=== PATIENT | male | born 2005 | race Caucasian/White ===

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

== ENCOUNTER 2023-03-04 18:23 | Emergency (ER) | payer OTHER, SELFPAY ==
--- NOTE | 2023-03-04 18:26 | ED.SKABFB ---
HPI - Skin/Abscess/Foreign Bdy General Chief complaint: Skin/Abscess/Foreign Body Stated complaint: left ring finger bee sting Time Seen by Provider: 03/04/23 18:26 Source: patient Mode of arrival: ambulatory Limitations: no limitations History of Present Illness HPI narrative: is a 17-year-old male patient presenting to clinic today with complaints of right ring finger swelling after he was stung by a loss 2 days ago. He reports that the fingers very itchy. No fever or chills. Denies shortness of breath, difficulty swallowing, or tongue swelling Related Data Home Medications Medication Instructions Recorded Confirmed albuterol sulfate 90 mcg/actuation 90 mcg inhalation Q4H PRN Headache 11/26/20 03/04/23 aerosol inhaler sumatriptan succinate 50 mg tablet 50 mg PO USEASDIRECTD 11/26/20 03/04/23 buspirone 10 mg tablet 10 mg PO DAILY 10/16/21 03/04/23 quetiapine 50 mg tablet 50 mg PO HS 10/16/21 03/04/23 Allergies Allergy/AdvReac Type Severity Reaction Status Date / Time No Known Allergies Allergy Verified 03/04/23 18:39 Review of Systems Review of Systems: Pertinent positives per HPI. Patient denies any fever, chills, headache, visual changes, dizziness, cough, runny nose, sore throat, shortness of breath, chest pain, palpitations, nausea, vomiting, diarrhea, constipation, abdominal pain, or any urinary issues. PMFSH Past Medical History Medical History Asthma Constipation Depression GERD (gastroesophageal reflux disease) Scoliosis Seasonal allergies Sleeplessness Social anxiety disorder Surgical History Surgical History No history of previous surgery Family History Family History Mother FH: migraines Anxiety Grandparent Diabetes mellitus Other Elevated cholesterol Hypertension Social History Social History (Updated 01/07/22 @ 09:44 by Caron Bennett NP) Tobacco type: e-cigarettes/vaping Alcohol intake: never Substance use: never Living arrangements: with family Occupation/Education: student Gender identity (if verbalized by the patient): Male Comments At the time of my signature, I reviewed and agree with the nursing past medical, surgical, social, and family history. There is no relevant family history pertinent to the patient complaint. Exam Narrative: General: Well-developed, well nourished, in no apparent distress Head: Normocephalic, atraumatic. Cardio: Regular rate and rhythm, s1 and s2 normal, no murmur appreciated. Resp: Clear to auscultation bilaterally, no rhonchi, rales, wheezing or rubs. Integumentary: Hartman, warm, and dry, intact without lesion, right volar ring finger swollen, red, and itchy-wasp sting over the the proximal DIP joint Course Course Emergency Course: Portions of this record may have been created with voice recognition software. Level of Care: Express Care Visit Vital Signs Vital signs: Vital signs reviewed MDM - Skin/Abscess/Foreign Bdy MDM Narrative Medical decision making narrative: At the time of visit patient is resting on the exam table. I suspect patient has a localized allergic reaction localized from a law stating to the right finger. Will place on oral prednisone and triamcinolone cream. Supportive measures were discussed with the patient he voiced understanding discharge instructions and agrees to treatment plan. Differential Diagnosis Differential diagnosis: Likely abscess of skin or subcutaneous tissue, allergic reaction to drug, cellulitis, eczema, insect bites and contact dermatitis Discharge Plan Discharge Clinical Impression: Allergic reaction to insect sting Qualifiers: Encounter type: initial encounter Injury intent: accidental or unintentional Qualified Code(s): T63.481A - Toxic effect of venom of other arthropod, accide
[2023-03-04 18:33] VITALS: BP 133/70; PULSE 66; RESP 18; TEMP 36.9; O2SAT 99
== END 2023-03-04 18:39 | disposition home or self-care (01) ==
PROVIDERS: Emergency Provider Nurse Practitioner Family
DX: T63.441A Toxic effect of venom of bees, accidental (unintentional), initial encounter (principal); J45.909 Unspecified asthma, uncomplicated; F32.A Depression, unspecified; K21.9 Gastro-esophageal reflux disease without esophagitis; F41.9 Anxiety disorder, unspecified; M41.9 Scoliosis, unspecified; F17.200 Nicotine dependence, unspecified, uncomplicated
CPT/HCPCS: 99213; G0463

== ENCOUNTER 2025-03-11 23:32 | Emergency (ER) | payer OTHER, SELFPAY ==
[2025-03-11 23:33] VITALS: BP 136/89; PULSE 74; RESP 18; TEMP 36.1; O2SAT 97
--- NOTE | 2025-03-11 23:33 | PC.NURSE ---
Pt triaged in wating room, states he was grinding metal at work and shavings flew in eye. VSS at this time, pt given cold washcloth for his eye.
--- NOTE | 2025-03-12 00:03 | ED_ITS ---
HPI - Eye Problem General Chief complaint: Eye Problems Stated complaint: possible metal in the eye Time Seen by Provider: 03/11/25 23:41 Source: patient Mode of arrival: ambulatory Limitations: no limitations History of Present Illness HPI Narrative: patient is a 19-year-old male with a left eye irritation after working with metal this evening and wearing his safety goggles but felt something get into his left eye. He is having pain of the left eye and irritation. MD chief complaint: eye pain ( Left), eye redness ( left) and foreign body ( left) Onset (ago): hour(s) ( 5) Onset description: sudden Duration: constant Location: left eye Eye Symptoms: burning, redness, pain and foreign body sensation Place: work Mechanism: occurred while hammering/grinding Severity: moderate Severity scale (1-10): 6 If Pain, Quality: sharp Context: trauma ( patient was working and got metal into his eye around his safety goggles while grinding metal) Associated symptoms: headache ( left head) Treatments Prior to Arrival: irrigated eye ( left) Related Data Home Medications ?Medication ?Instructions ?Recorded ?Confirmed ?Last Taken ?Type albuterol sulfate 90 mcg/actuation 90 mcg inhalation Q4H PRN Headache 11/26/20 03/04/23 Unknown History aerosol inhaler sumatriptan succinate 50 mg tablet 50 mg PO USEASDIRECTD 11/26/20 03/04/23 Unknown History buspirone 10 mg tablet 10 mg PO DAILY 10/16/21 03/04/23 Unknown History quetiapine 50 mg tablet 50 mg PO HS 10/16/21 03/04/23 Unknown History Allergies Allergy/AdvReac Type Severity Reaction Status Date / Time No Known Allergies Allergy Verified 03/04/23 18:39 Review of Systems Review of Systems: All systems reviewed & are unremarkable except as noted in HPI and below Constitutional: Constitutional: Reports no additional constitutional complaints Eyes: Eyes: Reports no additional eye complaints ENT: Reports system reviewed and no additional complaints, except as documented Cardiovascular: Cardiovascular: Reports no additional cardiovascular complaints Respiratory: Respiratory: Reports no additional respiratory complaints Gastrointestinal: Gastrointestinal: Reports no additional gastrointestinal complaints Genitourinary: Genitourinary: Reports no additional male genitourinary complaints Musculoskeletal: Musculoskeletal: Reports no additional musculoskeletal complaints Integumentary/Breasts: Skin/Breast: Reports system reviewed and no additional complaints, except as docu Neurologic: Reports system reviewed and no additional complaints, except as documented Psychiatric: Psychiatric: Reports no additional psychiatric complaints Endocrine: Endocrine: Reports no additional endocrine complaints Hematologic/Lymphatic: Hematologic/Lymphatic: Reports no additional hematologic/lymphatic complaints Allergic/Immunologic: Allergic/Immunologic: Reports no additional allergic/immunologic complaints PMFSH Past Medical History Medical History Sleeplessness Seasonal allergies Constipation GERD (gastroesophageal reflux disease) Social anxiety disorder Depression Asthma Scoliosis Surgical History Surgical History No history of previous surgery Family History Family History Mother FH: migraines Anxiety Grandparent Diabetes mellitus Other Elevated cholesterol Hypertension Social History Social History Tobacco type: e-cigarettes/vaping Alcohol intake: never Substance use: never Living arrangements: with family Occupation/Education: student Gender identity (if verbalized by the patient): Male Exam Const: General: healthy appearing Nutritional Appearance: well nourished Orientation/consciousness: patient oriented x3 Limitations: no limitations Other: acute pain from the left eye HENMT: Head: normal to inspection Ears: external ears normal Face/Nose/Sinus: Normal external nose present Eyes: Conjunctivae: abnormal conjunctivae and conjunctival abnormality ( irritated and inflamed left conjunctiva) Pupils: Equal, round and reactive pupils present EOM: EOMs intact bilaterally Direct Ophthalmoscopy: photophobia ( due to left eye irritation) Neck: Neck: normal visual inspection Chest: Chest palpation & inspection: normal inspection of the chest Resp: Effort & Inspection: normal respiratory effort and not labored Auscultation: clear to auscultation bilaterally and no crackles Cardio: Rate: regular rate Rhythm: regular rhythm Heart sounds: no murmurs Skin: General skin exam: normal color Rashes: no rashes Wounds: no wounds Neuro: General: patient oriented x3 Cranial nerves: Yes Nystagmus not present Speech: normal speech Gait exam (Neuro): Normal gait present Extrem: General: normal to inspection Psych: Mental Status: mental status grossly normal Affect: normal affect Attitude: cooperative Course Vital Signs Vital signs: Vital Signs Temperature 36.1 C L 03/11/25 23:33 Pulse Rate 74 03/11/25 23:33 Respiratory Rate 18 03/11/25 23:33 Blood Pressure 136/89 03/11/25 23:33 Pulse Oximetry 97 03/11/25 23:33 Oxygen Delivery Room Air 03/11/25 23:33 Temperature 36.1 C L 03/11/25 23:33 Pulse Rate 74 03/11/25 23:33 Respiratory Rate 18 03/11/25 23:33 Blood Pressure 136/89 03/11/25 23:33 Pulse Oximetry 97 03/11/25 23:33 Oxygen Delivery Room Air 03/11/25 23:33 Procedures Other Procedure Procedure 1: Other Procedure: Left eye direct visualization and no foreign body seen, fluorescein stain and no foreign body seen, fluorescein stain and no corneal abrasions or lacerations seen, eye was irrigated with saline solution for the eye, tetracaine used for anesthesia MDM - Eye Problem MDM Narrative Medical decision making narrative: patient is a 19-year-old male with left eye irritation after metal grinding. I will do direct examination as well as fluorescent examination. Further we will irrigate the eye with saline. I will use tetracaine. Discharge Plan Discharge Clinical Impression: Foreign body of left eye Qualifiers: Encounter type: initial encounter Qualified Code(s): T15.92XA - Foreign body on external eye, part unspecified, left eye, initial encounter Abrasion, corneal Qualifiers: Encounter type: initial encounter Laterality: left Qualified Code(s): S05.02XA - Injury of conjunctiva and corneal abrasion without foreign body, left eye, initial encounter Patient Disposition: Home Condition: Stable Instructions: Antibiotic Form, Eye Foreign Body (ED) Additional Instructions: please follow-up with an denial resolution specialist or an world renowned chef and restaurant owner in the next 24-48 hours for further evaluation of the left eye. Patient Language: Turkmen Prescriptions: New neomycin-polymyxin B-dexameth [Maxitrol] 3.5mg/mL-10,000 unit/mL-0.1 % drops,suspension 1 drp LEFT EYE TID 7 Days Qty: 5 0RF No Action prednisone 20 mg tablet 40 mg PO DAILY 5 Days Qty: 10 0RF triamcinolone acetonide 0.1 % cream 1 applic topical BID 7 Days Qty: 30 0RF sumatriptan succinate 50 mg tablet 50 mg PO USEASDIRECTD albuterol sulfate 90 mcg/actuation HFA aerosol inhaler 90 mcg INHALATION Q4H PRN (Reason: Headache) quetiapine 50 mg tablet 50 mg PO HS buspirone 10 mg tablet 10 mg PO DAILY Follow-up/Referrals: Rojelio Salazar MD [Primary Care Provider] - Time of Disposition: 01:03
[2025-03-12] MEDS: FLUORESCEIN SOD 1 MG/STRIP EACH EYE (00:40)
[2025-03-12] MEDS: TETRACAINE HCL 0.5% OPHTH SOLN 4 ML BTL 1 DROP EACH EYE (00:40)
[2025-03-12] MEDS: NEOMYCIN/POLYMYXIN/DEXAMETH OP SUSP 5 ML BTL 2 DROP LEFT EYE (01:11)
[2025-03-12] MEDS: DACRIOSE EYE IRRIGATION 118 ML BOTTLE 120 ML LEFT EYE (01:16)
[2025-03-12] MEDS: HYDROcodone/acetaminophen (*CRX) 5-325 MG TABLET 1 TAB PO (01:19)
[2025-03-12 01:35] VITALS: BP 130/71; PULSE 82; RESP 18; TEMP 36.4; O2SAT 99
== END 2025-03-12 01:35 | disposition home or self-care (01) ==
PROVIDERS: Emergency Provider Emergency Medicine; PCP Internal Medicine
DX: T15.02XA Foreign body in cornea, left eye, initial encounter (principal); W44.E0XA Non-magnetic metal object unspecified, entering into or through a natural orifice, initial encounter
CPT/HCPCS: 99283; A9270

== ENCOUNTER 2025-05-13 11:20 | Emergency (ER) | payer OTHER, SELFPAY ==
[2025-05-13] VITALS (15 sets, daily range): BP systolic 111–127; BP diastolic 61–86; PULSE 50–64; RESP 16–17; TEMP 36.6–36.8; O2SAT 98–100
--- NOTE | ~2025-05-13 | CT_ITS ---
EXAMINATION: CTA abdomen pelvis DATE: 05/13/2025 12:38 CDT INDICATION: GI bleed TECHNIQUE: Computed tomographic angiography (CTA) of the abdomen and pelvis was performed without and with 100 mL Omnipaque-350 intravenous contrast. The dose- length product was 229.58 mGy-cm. Maximum intensity projection 3D- reconstructions of the aorta and other arteries were constructed by the techno logist on a separate workstation. COMPARISON: None. FINDINGS: Lung bases unremarkable. Heart size normal. No significant pleural or pericardial effusion. The aorta is normal caliber without evidence for significant stenosis, aneurysm or occlusion. No dissection. The celiac axis, SMA, renal arteries and ARACELI are widely patent. The liver, spleen, pancreas, adrenal glands and kidneys are unremarkable. Gallbladder is present. No free air or free fluid. No significant bone or joint abnormality. IMPRESSION: 1. Unremarkable CTA of the abdomen and pelvis. Reviewed, dictated and finalized at location O.
[2025-05-13] MEDS: PANTOPRAZOLE SODIUM IV 40 MG VIAL IV PUSH (11:38)
[2025-05-13] MEDS: SODIUM CHLORIDE 0.9% IV 1,000 ML 999 ML IV CONT (11:38)
[2025-05-13 11:49] LABS: Hematocrit 39.2 % (40.0-54.0); Hemoglobin 13.1 g/dL (14.0-18.0); Immature Granulocyte Percent A 0.4 % (0.0-0.0); Lymphocytes Absolute Auto 1.55 K/mm3 (1.10-4.50); Mean Corpuscular HGB Conc 33.4 g/dL (32-36); Mean Corpuscular Hemoglobin 30.5 pg (27.0-31.0); Mean Corpuscular Volume 91.2 fL (78.0-102.0); Nucleated Red Blood Cells Absolute Auto 0.00 K/mm3 (0.00-0.00); Nucleated Red Blood Cells Perc 0.0 % (0-0.0); Platelet Count Result 202 K/mm3 (150-420); Red Blood Count 4.30 M/mm3 (4.70-6.10); White Blood Count 5.0 K/mm3 (4.8-10.8)
--- OUTSIDE RECORDS SUMMARY | 2025-05-13 12:01 | XMS_ITS | Encounter Summary ---
Author Organization [facility] Address [address] [place] [address] Phone Care Team Providers Care Burnt Lime Drawer Name Role Phone Susan Garcia MD Primary Care Provider [phone] Dylan Cosby MD Primary Care Provider [phone] Ann Moreno APRN, PAVING FOREMAN Unavailable Encounter Details Date Type Department Care Team (Late st Contact Info) Description 04/26/2023 Transcribe Orders [facility] Admitting [address] [place] [address] Leo Catherine MD [address] [place] [address] [id number] Social History Tobacco Use Types Packs/Day Years Used Date Smoking Tobacco: Never Smokeless Tobacco: Never Alcohol Use Standard Drinks/Week Comments No 0 (1 standard drink = 0.6 oz pur e alcohol) Sexually Active Control Partners Comments Not Currently Sex and Gender Information Value Date Recorded Sex Assigned at Not on file Legal Sex Male 11:38 PM CDT Gender Identity Not on file Sexual Orientation Not on file documented as of this encounter Plan of Treatment Not on file documented as of this encounter Visit Diagnoses Not on filedocumented in this encounter Care Teams Burnt Lime Drawer Relationship Specialty Start Date End Date Susan Garcia MD [address] [place] [address] PCP - General Pediatrics 05/29/21 09/06/23 Dylan Cosby MD [address] [address] PCP - General Family Medicine 09/07/23 Ann Moreno APRN, PAVING FOREMAN [address] [place] [address] Nurse Practitioner Advanced Practice Nurse 09/07/23 documented as of this encounter
--- OUTSIDE RECORDS SUMMARY | 2025-05-13 12:01 | XMS_ITS | Encounter Summary ---
Author Organization [facility] Address [address] [place] [address] Phone Care Team Providers Care Material Combiner Name Role Phone Susan Garcia MD Primary Care Provider [phone] Dylan Cosby MD Primary Care Provider [phone] Ann Moreno APRN, CLEARANCE CENTER MANAGER Unavailable Encounter Details Date Type Department Care Team (Late st Contact Info) Description 11/04/2021 [facility]cribe Orders [facility] Admitting 1 [place] [address] Shamar Riley MD [address] [place] [address] [place] [id number] Mild intermittent asthma with exacerbation (Primary Dx) Social History Tobacco Use Types Packs/Day Years Used Date Smoking Tobacco: Never Smokeless Tobacco: Never Alcohol Use Standard Drinks/Week Comments No 0 (1 standard drink = 0.6 oz pur e alcohol) Sex and Gender Information Value Date Recorded Sex Assigned at Not on file Legal Sex Male 11:38 PM CDT Gender Identity Not on file Sexual Orientation Not on file documented as of this encounter Plan of Treatment Scheduled Orders Name Type Priority Associated Diagnoses Orde r Schedule SARS-COV-2 BY MOLECULAR Microbiology Routine Mild intermittent asthma with exacerbation Expected: 11/04/2021, Expires: 11/04/2022 documented as of this encounter Visit Diagnoses Diagnosis Mild intermittent asthma with exacerbation- Primary Unspecified asthma, with exacerbation documented in this encounter Additional Health Concerns Infection Onset Date Last Indicated Resolved Time COVID - 19 11/04/2021 11/04/2021 11/24/2021 12:1 6 AM FINANCIAL SALES ASSISTANT documented as of this encounter Care Teams Material Combiner Relationship Specialty Start Date End Date Susan Garcia MD [address] [facility] [address] [place] [address] PCP - General Pediatrics 05/29/21 09/06/23 Dylan Cosby MD [address] [facility] [address] [address] PCP - General Family Medicine 09/07/23 Ann Moreno APRN, CLEARANCE CENTER MANAGER [address] [place] [address] Nurse Practitioner Advanced Practice Nurse 09/07/23 documented as of this encounter
--- OUTSIDE RECORDS SUMMARY | 2025-05-13 12:01 | XMS_ITS | Clinical Summary ---
Author Organization [facility] Address [address] [facility] [place] [address] Care Team Providers Care Poultry Veterinarian Name Role Phone Susan Garcia MD Primary Care Provider [phone] Source Comments [facility],non-owned Affiliates and Associated Physician Practices is amultiple site organization consisting of ambulatory clinics and hospital sitesin [place], [place], [place] and [place]. This disclosure is being madepursuant to the Care Everywhere program and may not contain all information available regarding this patient. Last updated 18.[facility] Allergies No known active allergies Medications * Be aware that medications may not be up to date on this document. Alwaysverify current medications with the patient. albuterol HFA (PROVENTIL;VENT SUSHIL;PROAIR) 108 (90 Base) MCG/ACT inhaler Inhale 2 puffs by mouth 1 Active escitalopram (LEXAPRO) 20 MG tablet TAKE ONE-HALF TABLET BY MOUTH 7PM FOR 7 DAYS THEN TAKE ONE TABLET BY MOUTH DAILY AT 7PM 1 Active SUMAtriptan (IMITREX) 50 MG tablet TAKE ONE TABLET BY MOUTH A ONSET OF ASEVERE MIGRAINE IF NO IMPROVEMENT IN 2 HOURS CAN TAKE ONE MORE MAX 3 PER WEEK 1 Active traZODone (DESYREL) 50 MG tablet TAKE ONE (1) TABLET BY MOUTH AT BEDTIME 1 Active ondansetron (ZOFRAN) 4 MG tablet Take 1 (one) tablet by mouth every 6 hours as needed for Nausea/Vomiting 20 tablet 1 Active magnesium citrate 1.745 GM/30ML Drink the contents of 1 bottle, (10 oz) over 2-4 hours. 296 mL 1 1 Active bisacodyl EC (DULCOLAX) 5 MG tablet Take 2 tablets by mouth, after completing clean out with Magnesium Citrate. 2 tablet 1 1 Active cyproheptadine (PERIACTIN) 4 MG tablet Take 1 (one) tablet by mouth at bedtime 30 tablet 2 1 Active omeprazole (PriLOSEC) 20 MG capsule Take 1 (one) capsule by mouth 2 times daily, before breakfast and supper 60 capsule 2 Active Active Problems Problem Noted Date Diagnosed Date Abdominal pain, generalized 06/17/2021 Abnormal weight loss 06/17/2021 Non-intractable vomiting 06/17/2021 Family history of Crohn's disease 06/17/2021 Resolved Problems Problem Noted Date Diagnosed Date Resolved Date Diarrhea 06/17/2021 07/15/2021 Constipation 06/17/2021 07/15/2021 Family History Medical History Relation Name Comments Colon polyps Maternal Aunt Crohn's Disease Maternal Aunt Other Maternal Aunt GERD, IBS, sto mach ulcers, H-pylori, pancreatitis, gallstones. Ulcerative Colitis Maternal Aunt Other Maternal Grandfather GERD Other Maternal Grandmother GERD, I BS Other Mother Gallstones, STEPHANIE D Other Paternal Grandmother Stomach ulcers Celiac Disease Neg Hx Relation Name Status Comments Maternal Aunt Maternal Grandfather Maternal Grandmother Mother Paternal Grandmother Social History Tobacco Use Types Packs/Day Years Used Date Smoking Tobacco: Smoker, Current Status Unknown Alcohol Use Standard Drinks/Week Comments Yes 0 (1 standard drink = 0.6 oz pur e alcohol) Sex and Gender Information Value Date Recorded Sex Assigned at Not on file Legal Sex Male 1:08 PM CDT Gender Identity Not on file Sexual Orientation Not on file Last Filed Vital Signs Vital Sign Reading Time Taken Comments Blood Pressure 110/69 06/26/2021 10:15 AM CDT Pulse 57 06/26/2021 10:15 AM CDT Temperature 36.3 C (97.4 F) 06/26/2021 9:17 AM CDT Respiratory Rate 16 06/26/2021 10:15 AM CDT Oxygen Saturation 100% 06/26/2021 10:15 AM CDT Inhaled Oxygen Concentration - - Weight 62.6 kg (138 lb 0.1 oz) 06/26/2021 8:01 A M CDT Height 170.3 cm (5' 7.05) 06/26/2021 8:01 AM CD T Body Mass Index 21.58 06/26/2021 8:01 AM CDT Plan of Treatment Health Maintenance Due Date Last Done Comments HIV SCREENING 2018 HPV VACCINE (1 - Male 3-dose series) 2018 MENINGOCOCCAL (Group B) VACC INE SHARED DECISION-MAKING (1 of 2 - Standard) 2019 HEPATITIS C SCREENING 11/07/2021 DTAP/TDAP/TD VACCINES (1 - Tdap) 2022 HEPATITIS B VACCINE (1 of 3 - 19+ 3-dose series) 2022 PNEUMOCOCCAL VACCINE (1 of 2 - PCV) 2022 COVID-19 VACCINE (1 - 2023-2 5 season) 2024 DEPRESSION SCREENING 09/19/2024 INFLUENZA VACCINE (#1) 2025 ZOSTER VACCINE (1 of 2) 2053 HIB VACCINE Aged Out No longer eligi ble based on patient's age to complete this topic MENINGOCOCCAL GROUPS A/C/Y/W VACCINE Aged Out No longer eligible b ased on patient's age to complete this topic [place] [address] [place] [address] * Guarantor: MAGUI EDMONDSON Account Type Relation to Patient Date of Phone Billing Address Personal/Family Other [address] [facility] Care Teams Poultry Veterinarian Relationship Specialty Start Date End Date Susan Garcia MD [address] [place] [address] PCP - General Pediatrics 07/10/21
--- OUTSIDE RECORDS SUMMARY | 2025-05-13 12:01 | XMS_ITS | Clinical Summary ---
Author Organization [facility] Address [address] [place] [address] Phone Care Team Providers Care Stringed Instrument Repairer Name Role Phone Dylan Cosby MD Primary Care Provider [phone] Ann Moreno APRN, TREASURY SPECIALIST Unavailable Allergies No known active allergies Medications albuterol 108 (90 Base) MCG/ACT Aerosol Solution take 2 Puffs by inhalation every 4 hours as needed. 1 Active FLUoxetine (PROzac) 10 MG Capsule 2 Active lamoTRIgine (LaMICtal) 200 MG Tablet 2 Active ondansetron (ZOFRAN-ODT) 8 MG TABLET DISPERSIBLE 2 Active SUMAtriptan (IMITREX) 50 MG Tablet 2 Active cyproheptadine (PERIACTIN) 4 MG TabletIndication s:Pain of upper abdomen Take 1 Tablet by mouth nightly. 90 Tablet 2 Active famotidine (PEPCID) 20 MG TabletIndication s:Pain of upper abdomen Take 1 Tablet by mouth 2 times daily. 180 Tablet 2 Active Additional Information Patient not taking.Reported on 04/12/2024 busPIRone (BUSPAR) 10 MG Tablet 5 mg as needed. 3 Active ibuprofen (MOTRIN) 600 MG Tablet Take 600 mg by mouth. 1 Active SALINE MIST 0.65 % Solution as needed. 3 Active ondansetron (Zofran) 4 MG TabletIndication s:Generalized abdominal pain Take 1 Tablet by mouth every 8 hours as needed for Nausea - 1st line. 30 Tablet 3 Active Additional Information Patient not taking.Reported on 04/12/2024 omeprazole (PriLOSEC) 20 MG CAPSULE DELAYED RELEASEIndicatio ns:Generalized abdominal pain,Dysphagia, unspecified type Take 2 Capsules by mouth daily. 120 Capsule 1 3 Active bisacodyl EC (DULCOLAX) 5 MG Tablet Delayed ResponseIndicati ons:Constipation , unspecified constipation type Take 1 Tablet by mouth 2 times daily as needed for Constipation - 1st line. 60 Tablet 1 3 Active ibuprofen (MOTRIN) 200 MG Tablet Take 200 mg by mouth as needed. Active Active Problems No known active problems Encounters Date Type Department Care Team Description 05/07/2025 Nurse Triage [facility] [address] [place] [address] Ann Moreno, UTILITY TECHNICIAN, TREASURY SPECIALIST Abdominal Pain from Last 3 Months Immunizations Immunization Administration Dates Next Due TDAP Vaccine 2022 Social History Tobacco Use Types Packs/Day Years Used Date Smoking Tobacco: Never Smokeless Tobacco: Never Tobacco Cessation:Counseling Given: Not Answered Alcohol Use Standard Drinks/Week Comments No 0 [...] Sign Reading Time Taken Comments Blood Pressure 124/80 04/06/2024 3:45 PM CDT Pulse 71 04/06/2024 3:45 PM CDT Temperature 35.8 C (96.4 F) 04/06/2024 3:45 PM CDT Respiratory Rate 20 04/06/2024 3:45 PM CDT Oxygen Saturation 100% 04/06/2024 3:45 PM CDT Inhaled Oxygen Concentration - - Weight 59 kg (130 lb) 04/06/2024 3:46 PM CDT Height 175.3 cm (5' 9) 04/06/2024 3:46 PM CDT Body Mass Index 19.2 04/06/2024 3:46 PM CDT Plan of Treatment Health Maintenance Due Date Last Done Comments SARS-COV-2 Immunization (2023- season) 2024 Influenza Immunization (#1) 2025 12/0 05/2019, 10/17/2018, 08/10/2004 Td Immunization Every 10 Years (Adults With 1 Tdap) 2032 2022, 04/28/2015 Respiratory Syncytial Virus (RSV) Immunization (Adult) (1 - 1-dose 75+ series) 2078 Hepatitis B Immunization Completed 004, 2003, 2003 Pneumococcal Immunization Combined Aged Out 02/08/2005, 08/10/2004, 05/14/2004, Additional history exists No longer eligible based on patient's age to complete this topic Measles Mumps Rubella (MMR) Immunization Discontinued 04/28/2009, 11/13/2004 Polio (IPV) Immunization Discontinued 009, 02/08/2005, 03/16/2004, Additional history exists Varicella Immunization Discontinued 04/28/2009, 2004 Hepatitis A Immunization Discontinued 08/15/2017, 11/18 Human Papillomavirus (HPV) Immunization Completed 08/15/2017, 10/18/2016, 04/28/2015 Meningococcal Immunization (ACWY) Completed 11/26/2019, 04/28/2015 Meningococcal B Immunization Completed 04/13/2021, 11/26/2019 DTaP/Tdap/Td Immunization Discontinued 2022, 04/28/2015, 04/28/2009, Additional history exists Hepatitis C Virus (HCV) Screening Completed 09/07/2023 Rotavirus Immunization Aged Out No lo nger eligible based on patient's age to complete this topic Procedures Procedure Name Priority Date/Time Associated Diagnosis Comments HEPATITIS C ANTIBODY Routine 09/07/2023 4:31 PM MARINE ENGINEERING PROFESSOR Weight loss from Last 3 Months or Most Recently Relevant to Health Maintenance Results * HEPATITIS C ANTIBODY (09/07/2023 4:31 PM MARINE ENGINEERING PROFESSOR) hepatitis C antibody 0.08 <1 S/CO [facility] ARCH [id number] B 09/08/2023 5:39 PM MARINE ENGINEERING PROFESSOR [facility] Comment: Signal/Cutoff ratio < 0.79 is Nondetected Signal/Cutoff ratio 0.80-0.99 is Grayzone Signal/Cutoff ratio > 0.99 is Detected Supplemental assays are recommended if signal/cutoff ratio is >/=1.00. Signal/cutoff ratio result >/= 5.00 is 97% predictive of positivity for recombinant immunoblot assay (RIBA) and will be reported to the [place] Department of Public Health as required. Blood Venipuncture / Unknown 09/07/2023 4:31 PM MARINE ENGINEERING PROFESSOR 09/07/2023 6:01 PM MARINE ENGINEERING PROFESSOR Ann Moreno UTILITY TECHNICIAN, TREASURY SPECIALIST CHEMISTRY ORDERAB LES Final Result [facility] [address] [place] [address], from Last 3 Months or Most Recently Relevant to Health Maintenance Insurance [place]ID [place] [address] [address] MED[place]ID [id number] Care Teams Stringed Instrument Repairer Relationship Specialty Start Date End Date Dylan Cosby MD [address] [place] [address] [address] PCP - General Family Medicine 09/07/23 Ann Moreno APRN, TREASURY SPECIALIST [address] [place] [address] Nurse Practitioner Advanced Practice Nurse 09/07/23
--- OUTSIDE RECORDS SUMMARY | 2025-05-13 12:01 | XMS_ITS | Encounter Summary ---
Author Organization [facility] Address [address] [place] [address] Phone Care Team Providers Care Disaster Recovery Coordinator Name Role Phone Susan Garcia MD Primary Care Provider [phone] Dylan Cosby MD Primary Care Provider [phone] Ann Moreno APRN, CRM BUSINESS ANALYST Unavailable Encounter Details Date Type Department Care Team (Late st Contact Info) Description 05/08/2022 Transcribe Orders [facility] Patient Access Admitting [address] [place] [address] Shamar Riley MD [address] [place] [address] Social History Tobacco Use Types Packs/Day Years [...] on filedocumented in this encounter Care Teams Disaster Recovery Coordinator Relationship Specialty Start Date End Date Susan Garcia MD [address] [place] [address] PCP - General Pediatrics 05/29/21 09/06/23 Dylan Cosby MD [address] [place] [address] [address] [place] [id number] PCP - General Family Medicine 09/07/23 Ann Moreno APRN, CRM BUSINESS ANALYST [address] [place] [address] Nurse Practitioner Advanced Practice Nurse 09/07/23 documented as of this encounter
--- OUTSIDE RECORDS SUMMARY | 2025-05-13 12:01 | XMS_ITS | Encounter Summary ---
Author Organization [facility] Address [address] [place] [address] Phone Care Team Providers Care Assistant Cross Country Coach Name Role Phone Dylan Cosby MD Primary Care Provider Ann Moreno APRN, RAILROAD REPAIRER Unavailable Reason for Visit * Reason Onset Date Comments Abdominal Pain 05/07/2025 Encounter Details Date Type Department Care Team (Late st Contact Info) Description 05/07/2025 Nurse Triage [facility] [place] [address] [place] [address] Ann Moreno APRN, RAILROAD REPAIRER [address] [place], [place] [id number] Abdominal Pain Social History Tobacco Use Types Packs/Day Years [...] on file documented as of this encounter Miscellaneous Notes * Telephone Encounter - Catrina Whitney RN - 05/13/2025 10:10 AM CDT SITUATION: patient called with complaints of ABD pain for over 2 weeks HISTORY: colitis ASSESSMENT & RECOMMENDATION: The patient called with complaints of central ABD pain for over 2 weeks. Patient reported the pain will come and go and is a sudden onset. Patients stated the pain will occasionally radiate to his lover ABD and upper ABD. Patient reported the area is tender to touch and is causing pressure. Patient stated that rest, drinking water, and taking fiber will occasionally help with the pain. Patient reported he has been having diarrhea and constipation for over 2 weeks which is normal for him. Patient stated his stool was black in color a couple of weeks ago but now is brown in color. Patient reported a poor appetite since the pain has started. Patient denied any issues with staying hydrated. patient denied fever/chills and/or vomiting. Patient also reported he has been having difficulty urinating for months. Per triage guidelines, the patient is to be seen in the ED or UC. Patient stated he would like to be seen in the office instead of going to the ED. Spoke with Ann Moreno in regards to the patients signs/symptoms. Per Ann, patient need to be seen in the ED for imaging and lab work. Advised patient that Ann wants him seen in the ED. Patient stated understanding and stated he will be seen in the ED as soon as he can get ahold of his mom. First positive answer recorded, all responses to prior questions were negative. If symptoms increase, change or if new symptoms develop, call your HCP or call back. Recommendations were based on caller information and is not a diagnosis. Verified and reviewed all triage information with caller. Teach-back method utilized. * Telephone Encounter - Catrina Whitney RN - 05/13/2025 10:08 AM CDT 1. LOCATION: Where does it hurt? Center of ABD 2. RADIATION: Does the pain shoot anywhere else? (e.g., chest, back) Yes, it radiates down or up and it hurts to push on my ABD. It feels like pressure 3. ONSET: When did the pain begin? (Minutes, hours or days ago) Probably over a couple of weeks. The pain will come and go 4. SUDDEN: Gradual or sudden onset? sudden 5. PATTERN Does the pain come and go, or is it constant? Comes and goes 6. SEVERITY: How bad is the pain? (e.g., Scale 1-10; mild, moderate, or severe) 6 7. RECURRENT SYMPTOM: Have you ever had this type of stomach pain before? If Yes, ask: When was the last time? and What happened that time? Yes, I have IBD. The last time I had this pain I took a nap, drank water, took fiber, and waited out the pain. 8. CAUSE: What do you think is causing the stomach pain? IBD, due to I never decided to take any medication for it 9. RELIEVING/AGGRAVATING FACTORS: What makes it better or worse? (e.g., antacids, bending or twisting motion, bowel movement) The pain gets better at rest. Movement makes the pain worse 10. OTHER SYMPTOMS: Do you have any other symptoms? (e.g., back pain, diarrhea, fever, urination pain, vomiting) Both diarrhea and constipation. A couple of weeks ago the stool was black and now it is a brown color. * Telephone Encounter - Catrina Whitney RN - 05/13/2025 9:17 AM CDT Attempted to contact patient in regards to mother contacting office stating the patient is having ABD pain/dark stools. Left message for patient to call back. * Telephone Encounter - Tiny Brady RN - 05/09/2025 2:21 PM CDT Attempted to call patient, no answer, no voicemail. I have been unable to reach this patient by phone. A letter is being sent to the last known home address. * Telephone Encounter - Tiny Brady RN - 05/08/2025 9:49 AM CDT Attempted to call patient, no answer, no voicemail. [email or web address] message sent to patient with notify office if not read by 05/09/2025. * Telephone Encounter - Ada Brown - 05/07/2025 10:36 AM CDT Patient calling office complaining of abdominal pain and black stools. He was made an appointment but provider would like patient to be triaged first. Appointment was canceled. Patient is aware. documented in this encounter Plan of Treatment Not on file documented as of this encounter Visit Diagnoses Not on filedocumented in this encounter Care Teams Assistant Cross Country Coach Relationship Specialty Start Date End Date Dylan Cosby MD [address] [place] [address] [address] [place] [id number] PCP - General Family Medicine 09/07/23 Ann Morneo APRN, RAILROAD REPAIRER [address] [place] [address] Nurse Practitioner Advanced Practice Nurse 09/07/23 documented as of this encounter
--- OUTSIDE RECORDS SUMMARY | 2025-05-13 12:01 | XMS_ITS | Encounter Summary ---
Author Organization [facility] Address [address] [place] [address] Phone Care Team Providers Care School Based Therapist Name Role Phone Susan Garcia MD Primary Care Provider [phone] Dylan Cosby MD Primary Care Provider [phone] Ann Moreno APRN, RX SPECIALIST Unavailable Encounter Details Date Type Department Care Team (Late st Contact Info) Description 05/31/2023 [facility] Admitting [address] [place] [address] Leo Catherine MD [address] [place] [address] [address] Social History Tobacco Use Types Packs/Day Years [...] on file Sexual Orientation Not on file COVID-19 Exposure Response Date Recorded In the last 10 days, have yo u been in contact with someone who was confirmed or suspected to have Coronavirus/COVID-19? No / Unsure 05/31/2023 12:51 PM CDT documented as of this encounter Plan of Treatment Not on file documented as of this encounter Visit Diagnoses Not on filedocumented in this encounter Care Teams School Based Therapist Relationship Specialty Start Date End Date Susan Garcia MD [address] [facility] [address] [facility] [address] [place] [address] PCP - General Pediatrics 05/29/21 09/06/23 Dylan Cosby MD [address] [facility] [address] [address] PCP - General Family Medicine 09/07/23 Ann Moreno APRN, RX SPECIALIST [address] [place] [address] Nurse Practitioner Advanced Practice Nurse 09/07/23 documented as of this encounter
[2025-05-13 12:03] LABS: Alanine Aminotransferase 14 U/L (6-50); Albumin Level 4.7 g/dL (3.5-5.1); Alkaline Phosphatase 76 U/L (38-126); Anion Gap 8 mmol/L (4-12); Aspartate Amino Transferase 23 U/L (17-59); Bilirubin,Total 0.9 mg/dL (0.2-1.3); Blood Urea Nitrogen 11 mg/dL (9-20); Calcium 9.6 mg/dL (8.4-10.2); Carbon Dioxide 28 mmol/L (22-30); Chloride 105 mmol/L (98-107); Estimated CRCL calculation 119 ml/min; Estimated Glomerular Filt Rate > 60; Glucose 109 mg/dL (65-110); INR 1.1; Osmolality Calculated 292 mOsm/kg (285-295); Potassium 4.7 mmol/L (3.4-5.0); Prothrombin Time 11.6 Seconds (9.50-12.1); Sodium 141 mmol/L (137-145); Total Protein 7.3 g/dL (6.3-8.2)
[2025-05-13 12:07] LABS: CRP < 0.5 mg/dL (<1.0)
--- NOTE | 2025-05-13 12:14 | PC.NURSE ---
Patient being taken down to CT
--- NOTE | 2025-05-13 13:02 | ED.ABDPAIN ---
HPI - Abdominal Pain General Chief Complaint: Abdominal Pain Stated Complaint: abdominal pain, black stool Time Seen by Provider: 05/13/25 11:24 Source: patient Mode of arrival: ambulatory Limitations: no limitations History of Present Illness HPI narrative: 19-year-old with a history of IBD here with a complains of abdominal pain and intermittent black stools for last 1 month. who denies any nausea or vomiting. No ailyn blood. Has not seen a GI. States occasionally he feels lightheaded. Related Data Home Medications ?Medication ?Instructions ?Recorded ?Confirmed ?Last Taken ?Type albuterol sulfate 90 mcg/actuation 90 mcg inhalation Q4H PRN Headache 11/26/20 03/04/23 Unknown History aerosol inhaler sumatriptan succinate 50 mg tablet 50 mg PO USEASDIRECTD 11/26/20 03/04/23 Unknown History buspirone 10 mg tablet 10 mg PO DAILY 10/16/21 03/04/23 Unknown History quetiapine 50 mg tablet 50 mg PO HS 10/16/21 03/04/23 Unknown History Allergies Allergy/AdvReac Type Severity Reaction Status Date / Time No Known Allergies Allergy Verified 05/13/25 11:21 Review of Systems Review of Systems: All systems reviewed & are unremarkable except as noted in HPI and below Constitutional: Constitutional: Reports no additional constitutional complaints Eyes: Eyes: Reports no additional eye complaints ENT: Reports system reviewed and no additional complaints, except as documented Cardiovascular: Cardiovascular: Reports no additional cardiovascular complaints Respiratory: Respiratory: Reports no additional respiratory complaints Gastrointestinal: Gastrointestinal: Reports as per HPI Musculoskeletal: Musculoskeletal: Reports no additional musculoskeletal complaints Integumentary/Breasts: Skin/Breast: Reports system reviewed and no additional complaints, except as docu PMFSH Past Medical History Medical History Sleeplessness Seasonal allergies Constipation GERD (gastroesophageal reflux disease) Social anxiety disorder Depression Asthma Scoliosis Surgical History Surgical History No history of previous surgery Family History Family History Mother FH: migraines Anxiety Grandparent Diabetes mellitus Other Elevated cholesterol Hypertension Social History Social History Tobacco type: e-cigarettes/vaping Alcohol intake: never Substance use: never Living arrangements: with family Occupation/Education: student Gender identity (if verbalized by the patient): Male Exam Narrative: GENERAL: Well-appearing, well-nourished, and in no acute distress. HEAD: Normocephalic, atraumatic. EYES: PERRLA and EOMI. ENT: Nares clear, no rhinorrhea or epistaxis. Mucous membranes moist. NECK: Supple. CHEST: Clear to auscultation. No respiratory distress. HEART: Regular rate and rhythm. No murmur heard. Normal peripheral pulses. ABDOMEN: Soft, nontender, nondistended, normal active bowel sounds. EXTREMITIES: Normal range of motion. No edema. SKIN: Warm, dry, no rash. NEURO: No focal deficits. Alert and oriented x3. PSYCH: Normal mood and affect. Course Course Emergency Course: Patient remained asymptomatic while he was here in the ER. I did inform him about the lab work, CT findings. Recommended him to follow with the GI. Vital Signs Vital signs: Vital Signs Temperature 36.6 C 05/13/25 11:22 Pulse Rate 64 05/13/25 11:22 Respiratory Rate 16 05/13/25 11:22 Blood Pressure 127/81 05/13/25 11:22 Pulse Oximetry 100 05/13/25 11:22 Oxygen Delivery Room Air 05/13/25 11:22 Temperature 36.6 C 05/13/25 11:22 Pulse Rate 64 05/13/25 11:22 Respiratory Rate 16 05/13/25 11:22 Blood Pressure 127/81 05/13/25 11:22 Pulse Oximetry 100 05/13/25 11:22 Oxygen Delivery Room Air 05/13/25 11:22 MDM - Abdominal Pain MDM Narrative Medical decision making narrative: 19-year-old otherwise healthy remote history of IBD here with a complains of abdominal pain and intermittent black stool. Minus do lab work, start IV fluids hand CTA of the abdomen and pelvis. Differential Diagnosis Differential diagnosis: Likely abdominal pain, diverticulitis, gastroenteritis, small bowel obstruction and other ( Crohn's, upper GI bleed) Medical Records Attestation: I reviewed the patient's medical records. Lab Data Attestation: I reviewed the patient's lab results. 05/13/25 11:38 05/13/25 11:38 Labs: Lab Results 05/13/25 Range/Units 11:38 WBC 5.0 (4.8-10.8) K/mm3 RBC 4.30 L (4.70-6.10) M/mm3 Hgb 13.1 L (14.0-18.0) g/dL Hct 39.2 L (40.0-54.0) % MCV 91.2 (78.0-102.0) fL MCH 30.5 (27.0-31.0) pg MCHC 33.4 (32-36) g/dL RDW 12.2 (11.6-14.4) % Plt Count 202 (150-420) K/mm3 MPV 11.3 H (8.7-11.0) fl Immature Gran % (Auto) 0.4 H (0.0-0.0) % Neut % (Auto) 51.1 (50.0-70.0) % Lymph % (Auto) 31.3 (18.0-42.0) % Howell % (Auto) 7.1 (2.0-11.0) % Eos % (Auto) 9.3 H (1.0-6.0) % Baso % (Auto) 0.8 (0.0-1.0) % Lymph # (Auto) 1.55 (1.10-4.50) K/mm3 Howell # (Auto) 0.35 (0.10-0.90) K/mm3 Eos # (Auto) 0.46 (0.02-0.50) K/mm3 Baso # (Auto) 0.04 (0.00-0.10) K/mm3 Abs Immat Gran (auto) 0.02 H (0.00-0.00) K/mm3 Absolute Neuts (auto) 2.54 (1.70-7.20) K/mm3 Absolute Nucleated RBC 0.00 (0.00-0.00) K/mm3 Nucleated RBC % 0.0 (0-0.0) % PT 11.6 (9.50-12.1) Seconds INR 1.1 Sodium 141 (137-145) mmol/L Potassium 4.7 (3.4-5.0) mmol/L Chloride 105 (98-107) mmol/L Carbon Dioxide 28 (22-30) mmol/L Anion Gap 8 (4-12) mmol/L BUN 11 (9-20) mg/dL Creatinine 0.79 (0.7-1.3) mg/dL Estim Creat Clear Calc 119 ml/min Estimated GFR > 60 (59 - ) Glucose 109 (65-110) mg/dL Calculated Osmolality 292 (285-295) mOsm/kg Calcium 9.6 (8.4-10.2) mg/dL Total Bilirubin 0.9 (0.2-1.3) mg/dL AST 23 (17-59) U/L ALT 14 (6-50) U/L Alkaline Phosphatase 76 (38-126) U/L C-Reactive Protein < 0.5 (<1.0) mg/dL Total Protein 7.3 (6.3-8.2) g/dL Albumin 4.7 (3.5-5.1) g/dL Imaging Data Radiologist's impression: ITS Impressions Abdomen/Pelvis CTA 05/13/25 12:37 IMPRESSION: 1. Unremarkable CTA of the abdomen and pelvis. Discharge Plan Discharge Clinical Impression: Abdominal pain Qualifiers: Abdominal location: epigastric Qualified Code(s): R10.13 - Epigastric pain Patient Disposition: Home Condition: Stable Instructions: Abdominal Pain (ED) Patient Language: Panamanian Prescriptions: New esomeprazole magnesium [Nexium 24HR] 20 mg capsule,delayed release(DR/EC) 20 mg PO Q24H 28 Days Qty: 28 0RF No Action neomycin-polymyxin B-dexameth [Maxitrol] 3.5mg/mL-10,000 unit/mL-0.1 % drops,suspension 1 drp LEFT EYE TID 7 Days Qty: 5 0RF prednisone 20 mg tablet 40 mg PO DAILY 5 Days Qty: 10 0RF triamcinolone acetonide 0.1 % cream 1 applic topical BID 7 Days Qty: 30 0RF sumatriptan succinate 50 mg tablet 50 mg PO USEASDIRECTD albuterol sulfate 90 mcg/actuation HFA aerosol inhaler 90 mcg INHALATION Q4H PRN (Reason: Headache) quetiapine 50 mg tablet 50 mg PO HS buspirone 10 mg tablet 10 mg PO DAILY Follow-up/Referrals: Elvia Sylvester [Other] Time of Disposition: 13:11
== END 2025-05-13 13:24 | disposition home or self-care (01) ==
PROVIDERS: Emergency Provider Family Medicine
DX: R10.13 Epigastric pain (principal)
CPT/HCPCS: 36415; 74174; 80053; 85025; 85610; 86140; 96361; 96374; 99284; J2470; J7030; Q9967